=== PATIENT | female | born 1965 | race Caucasian/White ===

== ENCOUNTER 2023-05-06 13:03 | Emergency (ER) | payer OTHER, SELFPAY ==
[2023-05-06 13:06] VITALS: BP 178/110
[2023-05-06 13:30] LABS: % Basophils 0.5 % (0-2); % Eosinophils 1.6 % (0-6); % Immature Granulocytes 0.5 % (0-0.5); % Lymphocytes 32.8 % (20.5-51.1); % Monocytes 7.5 % (1.7-9.3); % Neutrophils 57.1 % (42.2-75.2); Absolute Eosinophils 0.1 10^3/uL (0-0.7); Absolute Lymphocytes 2.1 10^3/uL (1.2-3.4); Absolute Monocytes 0.5 10^3/uL (0.1-0.6); Absolute Neutrophils 3.6 10^3/uL (1.4-6.5); Hematocrit 41.5 % (37.0-47.0); Hemoglobin 14.6 g/dL (12.0-16.0); Mean Corp Hgb Conc. 35.2 g/dL (33.0-37.0); Mean Corpuscular Hgb 33.2 pg (27.0-31.0); Mean Corpuscular Volume 94.3 fL (81.0-99.0); Mean Platelet Volume 9.2 fL (7.4-10.4); Nucleated Red Blood Cells % 0 %; Platelet Count 345 10^3/uL (130-400); Red Cell Dist. Width 11.8 % (11.5-14.5); White Blood Cell Count 6.3 10^3/uL (4.8-10.8)
[2023-05-06 13:43] LABS: COVID-19 Antigen Negative (Negative)
[2023-05-06 13:45] LABS: APTT 24.8 Sec (23.4-35.0)
[2023-05-06 13:52] LABS: Troponin I < 0.012 ng/ml
[2023-05-06 13:56] LABS: ALT (SGPT) 32 U/L (0-35); AST (SGOT) 28 U/L (14-36); Albumin 4.2 g/dl (3.5-5.0); Alkaline Phosphatase 57 U/L (38-126); Blood Urea Nitrogen 17 mg/dl (7-17); Calcium 9.4 mg/dl (8.4-10.2); Carbon Dioxide 28 mmol/L (22-30); Chloride 100 mmol/L (98-107); Glucose 85 mg/dl (70-99); Potassium 3.9 mmol/L (3.5-5.1); Sodium 134 mmol/L (135-145); Total Bilirubin 0.6 mg/dl (0.2-1.3); Total Protein 7.2 g/dl (6.3-8.2); eGFR > 60.00
--- NOTE | 2023-05-06 15:41 | ED.GENMED ---
History of Present Illness
<Lizeth Jackson PA-C - Last Filed: 05/06/23 18:59>
General
Chief Complaint: Cardiac Symptoms
Source: patient
Exam Limitations: none
Time Seen by Provider: 05/06/23 15:01
Nursing documentation reviewed up to this point in time: agreed with
Travel History
Have you had any contact with someone who has COVID-19?: No
Do you have any symptoms of coronavirus? Fever > 100 degrees, chills, cough, shortness of breath, sore throat, loss of taste or smell, muscle aches, or headache?: No
History of Present Illness
History of Present Illness:
Patient is a 58-year-old female with history hypertension presenting to the emergency department for evaluation of chest discomfort. Patient states symptoms were acute onset this morning around 4:30 AM. She describes a minor burning/pressure
sensation in her substernal chest/epigastric region. Pain has been constant. Patient denies any exertional or pleuritic component. Patient denies any associated shortness of breath, radiation of pain, nausea, vomiting. She denies any fever,
chills. Patient did try to take a Prilosec this morning with no improvement. In addition�patient noticed some elevated blood pressure readings at home. She denies any headache, back pain, visual changes, shortness of breath, weakness.
Of note�patient recently recovered from suspected COVID infection last week. She denies any lingering cough.
Patient denies any personal history of blood clots. No personal or family history of clotting disorders. Patient denies any recent travel or recent surgeries.
Phy Exam
<Lizeth Jackson PA-C - Last Filed: 05/06/23 18:59>
Physical Exam
Physical Exam:
General: In no apparent distress, non-toxic
Vitals: Hypertensive, otherwise vital signs stable, afebrile
HEENT: Atraumatic, normocephalic; protecting airway
Neck: appears supple, no JVD
CV: Regular rate and rhythm, heart sounds normal, no evidence of cyanosis; anterior chest wall nontender to palpation
Resp: No evidence of respiratory distress, lungs clear
Abd: Soft, nontender in all 4 quadrants, non-distended
Extremities: No deformities, no evidence of cyanosis or edema; DP pulses palpable and equal bilaterally, no clinical evidence of DVT on exam
Neuro: alert and oriented x 3; grossly
Psych: Normal affect
Skin: Intact, no rashes
Scores
<Lizeth Jackson PA-C - Last Filed: 05/06/23 18:59>
Heart Score for Chest Pain Patients
STEMI patient?: No
History: Slightly or Non-Suspicious
ECG: Normal
Age: >45 - <65 years
Risk Factors: 1 or 2 Risk Factors
Troponin: </= Normal Limit
Heart Score for Chest Pain Patients: 2
Heart Score Risk: 2.5% MACE over next 6 weeks
Course
<Lizeth Jackson PA-C - Last Filed: 05/06/23 18:59>
Orders/Labs/Results
Orders:
Orders
05/06/23 13:12
Electrocardiogram (*1) Urgent
Reason for Study: Chest Pain
CR Chest - 2 Views Urgent
Comment:
Reason For Exam: chest pain
05/06/23 13:13
EKG- Treatment ONCE
05/06/23 13:20
COVID-19 Antigen Urgent
Source: Nasal Swab
Complete Blood Count/With Diff Urgent
Comprehensive Metabolic Panel Urgent
PTT Urgent
Troponin I Urgent
Influenza A+B Rapid Molecular Urgent
[place] Source: Nasal Swab
Specimen Description:
Abnormal Lab Results
05/06/23
13:20
MCH 33.2 H pg
(27.0-31.0)
Sodium 134 L mmol/L
(135-145)
05/06/23 13:20
05/06/23 13:20
Vital Signs
Initial and Last Documented VS:
Initial Vital Signs
Temp Pulse Resp BP Pulse Ox
98.3 F 67 18 178/110 97
05/06/23 13:06 05/06/23 13:06 05/06/23 13:06 05/06/23 13:06 05/06/23 13:06
Last Documented Vital Signs
Temp Pulse Resp BP Pulse Ox
98.3 F 65 16 148/99 98
05/06/23 13:06 05/06/23 16:20 05/06/23 16:20 05/06/23 16:20 05/06/23 16:20
Cristallt;Kirill Omer DO - Last Filed: 05/06/23 16:06>
Orders/Labs/Results
Orders:
Orders
05/06/23 13:12
Electrocardiogram (*1) Urgent
Reason for Study: Chest Pain
CR Chest - 2 Views Urgent
Comment:
Reason For Exam: chest pain
05/06/23 13:13
EKG- Treatment ONCE
05/06/23 13:20
COVID-19 Antigen Urgent
Source: Nasal Swab
Complete Blood Count/With Diff Urgent
Comprehensive Metabolic Panel Urgent
PTT Urgent
Troponin I Urgent
Influenza A+B Rapid Molecular Urgent
[place] Source: Nasal Swab
Specimen Description:
Abnormal Lab Results
05/06/23
13:20
MCH 33.2 H pg
(27.0-31.0)
Sodium 134 L mmol/L
(135-145)
05/06/23 13:20
05/06/23 13:20
Vital Signs
Initial and Last Documented VS:
Initial Vital Signs
Temp Pulse Resp BP Pulse Ox
98.3 F 67 18 178/110 97
05/06/23 13:06 05/06/23 13:06 05/06/23 13:06 05/06/23 13:06 05/06/23 13:06
Last Documented Vital Signs
Temp Pulse Resp BP Pulse Ox
98.3 F 65 16 148/99 98
05/06/23 13:06 05/06/23 16:20 05/06/23 16:20 05/06/23 16:20 05/06/23 16:20
<Lizeth Jackson PA-C - Last Filed: 05/06/23 18:59>
MDM/Problems Addressed
Differential Diagnosis Includes:
GERD, costochondritis, pericarditis, myocarditis, muscular strain, pneumonia, doubt ACS or pulmonary embolism
MDM/Problems Addressed:
Patient is a 58-year-old female with history hypertension presenting for evaluation of substernal/epigastric chest discomfort since this morning. Pain was acute onset and has been constant since with no exertional or pleuritic component. No other
associated shortness of breath, abdominal pain, fever, chills, cough. No pain or swelling in lower extremities. patient is recovering from a suspected COVID infection from last week. Patient is hypertensive, otherwise vital signs stable. She is
afebrile. Physical exam as document above. Heart regular rate and rhythm, lungs clear. Chest pain is nonreproducible. No clinical evidence of DVT on exam. Basic labs, troponin, EKG, chest x-ray, viral swabs obtained in triage.
CBC without any clinically significant abnormalities. No leukocytosis CMP without any clinically significant abnormalities. Troponin is negative. Given that symptoms have been ongoing since 4:30 in the morning�this is sufficient to rule out acute
MO. Viral swabs are negative for COVID and flu. Chest x-ray shows no signs consistent with acute cardiopulmonary disease. No evidence of pneumonia.
EKG shows normal sinus rhythm at evidence of ischemia. There is some minor T wave flattening with no comparison EKG.
Workup in the emergency department is entirely negative. Patient remains not tachycardic. Blood pressure has decreased while in emergency department to 148/99. Very low suspicion for ACS or PE. Symptoms most consistent with a likely GERD/acid
reflux. She is stable for discharge with return precautions, primary care follow-up. She will follow-up with primary care regarding further management of hypertension. Patient is comfortable this plan. All questions answered
Chronic conditions affecting care:
Hypertension
Acute Exacerbation and/or Progression of Chronic Illness:
Acutely hypertensive
<Lizeth Jackson PA-C - Last Filed: 05/06/23 18:59>
*Radiology
Radiology exam reviewed: preliminary read by ED provider and radiology read reviewed
*Pulse Oximetry
Patient hypoxic: no
*EKG
Interpreted by ED Provider?: Yes
EKG Intrepretation Date: 05/06/23
Interpretation: normal
Comparison EKG: no comparison EKG present
Heart Rate: 70
Rate: normal
Rhythm: sinus
Ischemia: non-specific ST changes
*Towel Inspector Interpretation
Rate: normal
Interpretation: normal
Heart Rate: 76
Rhythm: sinus
*Critical Care Note
Total Time (30-74mins, 75-104mins- exclusive of procedures): Not Applicable
ED Attending Note
<Lizeth Jackson PA-C - Last Filed: 05/06/23 18:59>
-
Portions of this chart may have been created with voice recognition software.� Occasional wrong word or��sound alike� substitutions may have occurred due to the inherent limitations of voice recognition software.
<Kirill Omer DO - Last Filed: 05/06/23 16:06>
ED Attending Note
Patient seen and examined by attending physician: Yes
I performed the substantive portion of visit, reviewed & personally made and approve the management plan that is documented in note by myself or DIONISIO.: Yes
ED Attending Note:
I agree with Pushpa's note
Vague discomfort in the epigastrium. Symptoms been constant for hours. No pleuritic nature to the pain. No shortness of breath. Not tachycardic.
Exam is unremarkable. Lungs are clear bilaterally. Heart regular rate and rhythm no murmurs
Workup here is unremarkable. Very low suspicion for acute coronary syndrome. Perhaps reflux or GERD. Stable for discharge and outpatient follow
Discharge Plan
Departure
Patient Disposition: Home (Routine Discharge)
Date of Disposition: 05/06/23
Time of Disposition: 16:15
Patient with high blood pressure during this ER visit?: Yes
Condition: Good
Covid-19: Negative COVID-19
Discharge Problem:
Chest discomfort
Instructions: Acid Reflux and GERD in Adults (DC), Chest Pain (DC), High blood pressure emergencies, BLOOD PRESSURE
Referrals:
Gianluca Vu MD [Active] - As needed
Ceasar Talavera MD [Family Provider] - Follow up in 1 week
Activity Restrictions/Additional Instructions:
- Return to the emergency department with any chest pain, shortness of breath, dizziness, lightheadedness, severe back pain, worsening in current symptoms, or any other concerns
-Return to the emergency department if symptoms persist or are associated with shortness of breath, nausea, back pain, arm pain, or made worse with exertion
-You can try an [id number] Prilosec or Pepcid for symptoms related to possible acid reflux. Is important to stay well-hydrated
-As discussed�your blood pressure was elevated while in the emergency department today you should follow-up with primary care for further evaluation/management of hypertension
Interventions
Interventions:
*Risk Screen - Suicide Last Done: 05/06/23 13:06
*General Assessment Last Done: 05/06/23 13:06
*Neglect/Abuse Screening Last Done: 05/06/23 16:19
ED- Fall Risk Assessment Last Done: 05/06/23 16:37
*ED COVID-19 Vaccine History Last Done: 05/06/23 16:19
*Nursing Disposition Last Done: 05/06/23 16:37
ED- Pulmonary Assessment Last Done: 05/06/23 16:19
ED- Cardiac Assessment Last Done: 05/06/23 16:19
Discharge Date and Time
Discharge Date/Time: 05/06/23 16:38
[2023-05-06 16:20] VITALS: BP 148/99
== END 2023-05-06 16:38 | disposition home or self-care (01) ==
LOC: EMR 13:03
PROVIDERS: Emergency Medicine; EMERGENCY PHYSICIAN Emergency Medicine; FAMILY PHYSICIAN Family Medicine
DX: R07.89 Other chest pain (principal); I10 Essential (primary) hypertension; Z11.52 Encounter for screening for COVID-19
CPT/HCPCS: 99285; 71046; 80053; 84484; 85025; 85730; 87502; 87811; 93005

== ENCOUNTER → 2023-05-12 16:08 | Outpatient (REF) | payer OTHER, SELFPAY | LOC: MRI 3T 16:08 | PROVIDERS: ATTENDING PHYSICIAN Otolaryngology; FAMILY PHYSICIAN Nurse Practitioner | DX: H90.42 Sensorineural hearing loss, unilateral, left ear, with unrestricted hearing on the contralateral side (principal) | CPT/HCPCS: 70553; A9575 ==

== ENCOUNTER → 2023-06-28 11:12 | Outpatient (REF) | payer OTHER, SELFPAY | LOC: HWRAD 11:12 | PROVIDERS: ATTENDING PHYSICIAN Nurse Practitioner | DX: R06.2 Wheezing (principal) | CPT/HCPCS: 71046 ==

== ENCOUNTER → 2024-07-09 09:51 | Outpatient (REF) | payer BC, SELFPAY | LOC: HWRAD 09:51 | PROVIDERS: ATTENDING PHYSICIAN Obstetrics & Gynecology; FAMILY PHYSICIAN Nurse Practitioner Adult Health | DX: N95.0 Postmenopausal bleeding (principal) | CPT/HCPCS: 76830; 76856 ==